=== PATIENT | male | born 2000 | race Caucasian/White ===

== ENCOUNTER 2022-02-19 11:34 | Emergency (ER) | payer OTHER ==
[~2022-02-19] VITALS: Ht 177.8 cm; Wt 86.4 kg
[2022-02-19 12:17] VITALS: BP 130/75; TEMP 97.7
[2022-02-19 16:00] VITALS: PULSE 60
== END 2022-02-19 16:00 | disposition home or self-care (01) ==
LOC: COL.ER 11:34
DX: S81.812A Laceration without foreign body, left lower leg, initial encounter (principal); W29.3XXA Contact with powered garden and outdoor hand tools and machinery, initial encounter

== ENCOUNTER → 2022-03-01 | Outpatient (CLI) | payer OTHER ==
[2022-03-01 11:35] VITALS: BP 130/67; PULSE 58; TEMP 98
== END ==
LOC: COL.ER 11:06
DX: Z48.02 Encounter for removal of sutures (principal)